=== PATIENT | male | born 1950 | race Caucasian/White ===

== ENCOUNTER 2022-06-01 11:40 | Inpatient (IN) ==
[2022-06-01 12:58] LABS: Basophils # 0.1 K/mcL (0.0-0.2); Basophils % 0.9 %; Eosinophils # 0.2 K/mcL (0.0-0.6); Hematocrit 37.1 % (37.5-50.1); Hemoglobin 12.8 g/dL (12.9-16.9); Immature Granulocytes % 0.6 % (0-4); Lymphocytes # 1.5 K/mcL (0.6-4.6); Mean Corpuscular HGB Conc 34.5 g/dL (31.6-35.5); Mean Corpuscular Hemoglobin 35.1 pg (28.0-33.3); Mean Corpuscular Volume 101.6 fL (83.0-100.0); Mean Platelet Volume 8.8 fL (9.4-12.4); Monocytes % 14.7 %; Neutrophils # 3.9 K/mcL (1.6-8.9); Platelet Count 262 K/mcL (140-400); Red Blood Count 3.65 M/mcL (4.19-5.50); Red Cell Distribution Width 12.6 % (11.5-14.5); Segmented Neutrophils % 57.8 %; White Blood Count 6.7 K/mcL (4.3-11.1)
[2022-06-01 13:19] LABS: Calcium 9.8 mg/dL (8.6-10.3); Potassium 3.9 mEq/L (3.5-5.1)
[2022-06-01 13:35] LABS: Troponin I 2.18 ng/mL (< 0.04)
[2022-06-01] MEDS ORDERED: *HR* Heparin 5,000 UNIT/ML VIAL IVP PRN ×2 (13:37)
[2022-06-01] MEDS ORDERED: *HR* Heparin 5,000 UNIT/ML VIAL IVP ONE (13:37)
[2022-06-01] MEDS ORDERED: Aspirin 81 MG TAB.CHEW PO STA (13:42)
[2022-06-01] MEDS ORDERED: Nitroglycerin 0.4 MG TAB.SUBL SL PRN (13:50)
[2022-06-01] MEDS: Heparin 25,000UNIT/250ML 1/2NS 25,000 UNIT/250 ML IV.SOLN IVC SCH (14:07)
[2022-06-01] MEDS ORDERED: Naloxone 0.4 MG/ML INJ IVP PRN (14:13)
[2022-06-01] MEDS ORDERED: Ondansetron 4 MG/2 ML VIAL IVP PRN (16:21)
[2022-06-01] MEDS ORDERED: hydrOXYzine pamoate 25 MG CAPSULE PO PRN (16:23)
[2022-06-01] MEDS ORDERED: *HR* LORazepam 2 MG/ML VIAL IVP PRN (17:02)
[2022-06-01 17:10] LABS: Hematocrit 34.9 % (37.5-50.1); Hemoglobin 12.2 g/dL (12.9-16.9); Mean Corpuscular Hemoglobin 35.1 pg (28.0-33.3); Mean Corpuscular Volume 100.3 fL (83.0-100.0); Platelet Count 259 K/mcL (140-400); Red Blood Count 3.48 M/mcL (4.19-5.50); Red Cell Distribution Width 12.6 % (11.5-14.5); White Blood Count 5.9 K/mcL (4.3-11.1)
[2022-06-01 17:18] LABS: INR 1.2; Prothrombin Time 13.8 Seconds (9.4-12.1)
[2022-06-01 17:23] LABS: Bilirubin,Urine Negative (Negative); Blood,Urine Negative (Negative); Clarity,Urine Clear (Clear); Color,Urine Light-Yellow (Yellow); Glucose,Urine (UA) Normal (Normal); Ketones,Urine 10 mg/dL (Negative); Leukocyte Esterase,Urine Negative (Negative); Mucus,Urine Few per lpf (None-Few); Nitrite,Urine Negative (Negative); Protein,Urine 30 mg/dL (Neg-Trace); RBC,Urine 0-3 per hpf (0-3); Specific Gravity,Urine 1.018 (1.010-1.025); Sperm,Urine Present per hpf (None Seen); Squamous Epithelial Cell,Urine Few per hpf (None-Few); Urobilinogen,Urine Normal (Normal); WBC,Urine 0-3 per hpf (0-3)
[2022-06-01] MEDS ORDERED: 0.9 % Sodium Chloride 1,000 ML IV ONE (17:49)
[2022-06-01 18:00] LABS: Albumin 3.8 g/dL (3.5-5.7); Albumin/Globulin Ratio 1.3 (1.1-2.2); Bilirubin,Total 1.3 mg/dL (0.3-1.0); Calcium 9.6 mg/dL (8.6-10.3); Chol/HDL Ratio 3.4 (0-4.9); Globulin 2.9 g/dL (2.4-3.5); Magnesium 1.6 mg/dL (1.6-2.6); Phosphorous 2.4 mg/dL (2.7-4.5); Potassium 3.9 mEq/L (3.5-5.1); Total Protein 6.7 g/dL (6.4-8.9); Troponin I 2.1 ng/mL (< 0.04)
[2022-06-01] MEDS: carvediloL 6.25 MG TABLET PO SCH (18:37)
[2022-06-01] MEDS: Folic Acid 1 MG TABLET PO SCH (18:37)
[2022-06-01] MEDS: Vitamin B Complex/Vit C/Vit E 1 EACH TABLET PO SCH (18:43)
[2022-06-01] MEDS: Thiamine (B-1) 100 MG TABLET PO SCH (18:43)
[2022-06-01] MEDS: Morphine Sulfate 2 MG/ML SYRINGE IVP PRN ×2 (19:50→23:58)
[2022-06-01] MEDS ORDERED: *HR* Ticagrelor 90 MG TABLET PO SCH (21:00)
[2022-06-02 03:20] LABS: Folate > 22.3 ng/mL (3.0-16.0); Vitamin B12 394 pg/mL (250-1100)
[2022-06-02] MEDS: Vitamin B Complex/Vit C/Vit E 1 EACH TABLET PO SCH (08:07)
[2022-06-02] MEDS: carvediloL 6.25 MG TABLET PO SCH ×2 (08:07→17:24)
[2022-06-02] MEDS: Thiamine (B-1) 100 MG TABLET PO SCH (08:07)
[2022-06-02] MEDS: Folic Acid 1 MG TABLET PO SCH (08:07)
[2022-06-02] MEDS: Aspirin 81 MG TAB.CHEW PO SCH (08:07)
[2022-06-02] MEDS ORDERED: Aspirin 325 MG TABLET PO SCH (09:00)
[2022-06-02] MEDS ORDERED: atenoloL 25 MG TABLET PO SCH (09:00)
[2022-06-02] MEDS: Morphine Sulfate 2 MG/ML SYRINGE IVP PRN (09:05)
[2022-06-02] MEDS ORDERED: *HR* LORazepam 2 MG/ML VIAL IVP ONE (09:42)
[2022-06-02 13:22] LABS: Hematocrit 34.3 % (37.5-50.1); Hemoglobin 11.6 g/dL (12.9-16.9); Mean Corpuscular HGB Conc 33.8 g/dL (31.6-35.5); Mean Corpuscular Hemoglobin 34.7 pg (28.0-33.3); Mean Corpuscular Volume 102.7 fL (83.0-100.0); Mean Platelet Volume 9.4 fL (9.4-12.4); Platelet Count 237 K/mcL (140-400); Red Blood Count 3.34 M/mcL (4.19-5.50); Red Cell Distribution Width 12.9 % (11.5-14.5); White Blood Count 6.1 K/mcL (4.3-11.1)
[2022-06-02 13:42] LABS: Calcium 8.9 mg/dL (8.6-10.3); Magnesium 1.6 mg/dL (1.6-2.6); Phosphorous 2.9 mg/dL (2.7-4.5); Potassium 3.9 mEq/L (3.5-5.1)
[2022-06-02] MEDS ORDERED: *HR* Heparin 10,000 UNIT/10 ML VIAL ONE ×2 (14:01→14:49)
[2022-06-02] MEDS ORDERED: Heparin 1,000 UNITS/500 mL 500 ML ONE (14:01)
[2022-06-02] MEDS ORDERED: Iopamidol - 370 200 ML INFUS..BTL ONE (14:01)
[2022-06-02] MEDS ORDERED: Nitroglycerin 1,000 MCG/5 ML VIAL IV ONE (14:01)
[2022-06-02] MEDS ORDERED: 0.9 % Sodium Chloride 1,000 ML ONE (14:01)
[2022-06-02] MEDS ORDERED: *HR* FentaNYL (PF) 100 MCG/2 ML VIAL ONE ×2 (14:08→15:47)
[2022-06-02] MEDS ORDERED: *HR* Midazolam HCl 2 MG/2 ML VIAL ONE ×2 (14:09→15:42)
[2022-06-02] MEDS: *HR* LORazepam 0.5 MG TABLET PO SCH ×2 (14:49→20:23)
[2022-06-02] MEDS ORDERED: Aspirin 325 MG TABLET ONE (14:49)
[2022-06-02] MEDS ORDERED: Ondansetron 4 MG/2 ML VIAL ONE (15:40)
[2022-06-02] MEDS: FentaNYL (PF) 1,000 MCG/100 ML IV.SOLN IVC SCH (16:20)
[2022-06-02] MEDS ORDERED: Naloxone 0.4 MG/ML INJ IVP PRN (16:53)
[2022-06-02] MEDS: Heparin 25,000UNIT/250ML 1/2NS 25,000 UNIT/250 ML IV.SOLN IVC SCH (17:16)
[2022-06-02] MEDS ORDERED: Heparin 25,000UNIT/250ML 1/2NS 25,000 UNIT/250 ML IV.SOLN IVC SCH (18:00)
[2022-06-02] MEDS: D5% in Lactated Ringers 1,000 ML IVC SCH (18:03)
[2022-06-02] MEDS: Albuterol 2.5 MG/3 ML NEBULIZER IH SCH ×3 (18:46→23:28)
[2022-06-02] MEDS ORDERED: Ringers Solution, Lactated 500 ML ONE (19:04)
[2022-06-02] MEDS ORDERED: Ringers Solution, Lactated 500 ML IVC ONE (19:05)
[2022-06-03 01:37] LABS: Calcium 7.9 mg/dL (8.6-10.3); Magnesium 1.5 mg/dL (1.6-2.6); Potassium 3.7 mEq/L (3.5-5.1)
[2022-06-03] MEDS: Morphine Sulfate 2 MG/ML SYRINGE IVP PRN ×2 (01:54→09:02)
[2022-06-03] MEDS: D5% in Lactated Ringers 1,000 ML IVC SCH ×3 (03:30→18:40)
[2022-06-03] MEDS: Albuterol 2.5 MG/3 ML NEBULIZER IH SCH ×6 (03:51→23:03)
[2022-06-03] MEDS: Folic Acid 1 MG TABLET PO SCH (09:01)
[2022-06-03] MEDS: Aspirin 81 MG TAB.CHEW PO SCH (09:01)
[2022-06-03] MEDS: Thiamine (B-1) 100 MG TABLET PO SCH (09:02)
[2022-06-03] MEDS: *HR* LORazepam 0.5 MG TABLET PO SCH ×3 (09:02→21:28)
[2022-06-03] MEDS: carvediloL 6.25 MG TABLET PO SCH ×3 (09:02→17:23)
[2022-06-03] MEDS: Vitamin B Complex/Vit C/Vit E 1 EACH TABLET PO SCH (09:02)
[2022-06-03] MEDS ORDERED: Isosorbide MONOnitrate (24 HR) 30 MG TAB.ER.24H PO SCH (10:15)
[2022-06-03 10:56] LABS: Hematocrit 27.9 % (37.5-50.1); Hemoglobin 9.6 g/dL (12.9-16.9); Mean Corpuscular HGB Conc 34.4 g/dL (31.6-35.5); Mean Corpuscular Hemoglobin 35.3 pg (28.0-33.3); Mean Platelet Volume 8.9 fL (9.4-12.4); Platelet Count 175 K/mcL (140-400); Red Blood Count 2.72 M/mcL (4.19-5.50); Red Cell Distribution Width 12.9 % (11.5-14.5); White Blood Count 5.9 K/mcL (4.3-11.1)
[2022-06-03 11:08] LABS: Mean Corpuscular Volume 102.6 fL (83.0-100.0)
[2022-06-03] MEDS: FentaNYL (PF) 1,000 MCG/100 ML IV.SOLN IVC SCH (12:19)
[2022-06-03] MEDS ORDERED: Morphine Sulfate 2 MG/ML SYRINGE IVP PRN (16:43)
[2022-06-03] MEDS ORDERED: Heparin 25,000UNIT/250ML 1/2NS 25,000 UNIT/250 ML IV.SOLN IVC SCH (16:43)
[2022-06-03] MEDS ORDERED: *HR* Heparin 5,000 UNIT/ML VIAL IVP PRN ×2 (16:43)
[2022-06-03] MEDS ORDERED: Naloxone 0.4 MG/ML INJ IVP PRN (16:43)
[2022-06-03] MEDS ORDERED: Ondansetron 4 MG/2 ML VIAL IVP PRN (16:43)
[2022-06-03] MEDS ORDERED: Ranolazine 500 MG TAB.ER.12H PO SCH (21:00)
[2022-06-03] MEDS: Ranolazine 500 MG TAB.ER.12H PO SCH (21:29)
[2022-06-03] MEDS: *HR* Heparin 5,000 UNIT/ML VIAL SQ SCH (21:29)
[2022-06-04] MEDS ORDERED: Melatonin 3 MG TABLET PO ONE (01:53)
[2022-06-04] MEDS: D5% in Lactated Ringers 1,000 ML IVC SCH ×3 (02:50→22:01)
[2022-06-04] MEDS: Albuterol 2.5 MG/3 ML NEBULIZER IH SCH ×6 (03:12→23:21)
[2022-06-04] MEDS: *HR* Heparin 5,000 UNIT/ML VIAL SQ SCH ×3 (06:41→21:46)
[2022-06-04] MEDS ORDERED: Iopamidol - 370 500 ML MLS IVP ONE (07:04)
[2022-06-04] MEDS: Ranolazine 500 MG TAB.ER.12H PO SCH ×2 (10:31→21:46)
[2022-06-04] MEDS: Isosorbide MONOnitrate (24 HR) 30 MG TAB.ER.24H PO SCH (10:31)
[2022-06-04] MEDS: Vitamin B Complex/Vit C/Vit E 1 EACH TABLET PO SCH (10:32)
[2022-06-04] MEDS: Aspirin 81 MG TAB.CHEW PO SCH (10:32)
[2022-06-04] MEDS: Thiamine (B-1) 100 MG TABLET PO SCH (10:32)
[2022-06-04] MEDS: *HR* LORazepam 0.5 MG TABLET PO SCH ×3 (10:32→21:46)
[2022-06-04] MEDS: Folic Acid 1 MG TABLET PO SCH (10:33)
[2022-06-04] MEDS: carvediloL 6.25 MG TABLET PO SCH ×2 (10:41→18:14)
[2022-06-04 11:33] LABS: Hematocrit 26.9 % (37.5-50.1); Hemoglobin 8.9 g/dL (12.9-16.9); Mean Corpuscular HGB Conc 33.1 g/dL (31.6-35.5); Mean Corpuscular Hemoglobin 34.6 pg (28.0-33.3); Mean Corpuscular Volume 104.7 fL (83.0-100.0); Mean Platelet Volume 9.2 fL (9.4-12.4); Platelet Count 166 K/mcL (140-400); Red Blood Count 2.57 M/mcL (4.19-5.50); White Blood Count 5.3 K/mcL (4.3-11.1)
[2022-06-04 11:52] LABS: Calcium 7.8 mg/dL (8.6-10.3); Magnesium 1.6 mg/dL (1.6-2.6); Potassium 3.6 mEq/L (3.5-5.1)
[2022-06-05 02:17] LABS: Hemoglobin 8.9 g/dL (12.9-16.9); Mean Corpuscular Hemoglobin 34.5 pg (28.0-33.3); Mean Corpuscular Volume 104.7 fL (83.0-100.0); Mean Platelet Volume 9.2 fL (9.4-12.4); Platelet Count 175 K/mcL (140-400); Red Blood Count 2.58 M/mcL (4.19-5.50); Red Cell Distribution Width 12.9 % (11.5-14.5); White Blood Count 4.6 K/mcL (4.3-11.1)
[2022-06-05 02:41] LABS: Magnesium 1.5 mg/dL (1.6-2.6); Potassium 3.9 mEq/L (3.5-5.1)
[2022-06-05] MEDS: Albuterol 2.5 MG/3 ML NEBULIZER IH SCH ×6 (04:24→23:38)
[2022-06-05] MEDS: D5% in Lactated Ringers 1,000 ML IVC SCH ×2 (07:32→08:00)
[2022-06-05] MEDS: *HR* Heparin 5,000 UNIT/ML VIAL SQ SCH ×3 (07:56→20:43)
[2022-06-05] MEDS: Ranolazine 500 MG TAB.ER.12H PO SCH ×2 (07:57→20:42)
[2022-06-05] MEDS: Aspirin 81 MG TAB.CHEW PO SCH (07:58)
[2022-06-05] MEDS: Isosorbide MONOnitrate (24 HR) 30 MG TAB.ER.24H PO SCH (07:58)
[2022-06-05] MEDS: Thiamine (B-1) 100 MG TABLET PO SCH (07:58)
[2022-06-05] MEDS: Folic Acid 1 MG TABLET PO SCH (07:58)
[2022-06-05] MEDS: Vitamin B Complex/Vit C/Vit E 1 EACH TABLET PO SCH (07:59)
[2022-06-05] MEDS: *HR* LORazepam 0.5 MG TABLET PO SCH ×3 (07:59→20:43)
[2022-06-05] MEDS: carvediloL 6.25 MG TABLET PO SCH ×2 (07:59→17:40)
[2022-06-05] MEDS: Cyanocobalamin (B-12) 1,000 MCG/ML VIAL SQ SCH (08:00)
[2022-06-06] MEDS: Albuterol 2.5 MG/3 ML NEBULIZER IH SCH ×4 (03:47→16:20)
[2022-06-06] MEDS: *HR* Heparin 5,000 UNIT/ML VIAL SQ SCH ×2 (05:31→14:13)
[2022-06-06 06:39] LABS: Hematocrit 29.8 % (37.5-50.1); Hemoglobin 9.9 g/dL (12.9-16.9); Mean Corpuscular HGB Conc 33.2 g/dL (31.6-35.5); Mean Corpuscular Hemoglobin 34.7 pg (28.0-33.3); Mean Corpuscular Volume 104.6 fL (83.0-100.0); Mean Platelet Volume 9.4 fL (9.4-12.4); Platelet Count 204 K/mcL (140-400); Red Blood Count 2.85 M/mcL (4.19-5.50); Red Cell Distribution Width 12.8 % (11.5-14.5); White Blood Count 4.9 K/mcL (4.3-11.1)
[2022-06-06 07:08] LABS: Calcium 8.8 mg/dL (8.6-10.3); Magnesium 1.7 mg/dL (1.6-2.6); Potassium 4.4 mEq/L (3.5-5.1)
[2022-06-06] MEDS: carvediloL 6.25 MG TABLET PO SCH (07:40)
[2022-06-06] MEDS: *HR* LORazepam 0.5 MG TABLET PO SCH ×2 (07:57→14:15)
[2022-06-06] MEDS: Vitamin B Complex/Vit C/Vit E 1 EACH TABLET PO SCH (07:58)
[2022-06-06] MEDS: Thiamine (B-1) 100 MG TABLET PO SCH (07:59)
[2022-06-06] MEDS: Ranolazine 500 MG TAB.ER.12H PO SCH (07:59)
[2022-06-06] MEDS: Isosorbide MONOnitrate (24 HR) 30 MG TAB.ER.24H PO SCH (07:59)
[2022-06-06] MEDS: Aspirin 81 MG TAB.CHEW PO SCH (08:00)
[2022-06-06] MEDS: Folic Acid 1 MG TABLET PO SCH (08:01)
[2022-06-06] MEDS: Cyanocobalamin (B-12) 1,000 MCG/ML VIAL SQ SCH (08:01)
[2022-06-06 11:21] VITALS: BP 117/62; PULSE 63; TEMP 98.9; O2SAT 96
[2022-06-06 14:05] LABS: Influenza A PCR Negative (Negative); Influenza B PCR Negative (Negative); Resp. Syncytial Virus PCR Negative (Negative)
[2022-06-06 14:17] LABS: SARS-CoV-2 by PCR (In House) Negative (Negative)
[2022-06-06 14:52] LABS: Total Volume 24 Hour,Urine 1.39 Liters (0.80-1.80)
[2022-06-06 15:04] LABS: Sodium, Urine 127.2 mEq/L
== END 2022-06-06 18:08 | disposition home health service (06) | DRG 246 ==
LOC: EMEROOARM 11:40 → 3NENU 11:40 → SUATTDRO 14:09 → 3NENU 15:18 → ICNU 06-02 16:39 → SUATTDRO 06-02 17:07 → 2ANU 06-03 16:28
PROVIDERS: ADMIT Student in an Organized Health Care Education/Training Program; ATTEND Internal Medicine